=== PATIENT | male | born 1955 | race Caucasian/White ===

== ENCOUNTER → 2017-03-13 | Outpatient (CLI) | payer OTHER | END | disposition home or self-care (01) | LOC: PCVCIMAG 09:33 | PROVIDERS: ATTEND Internal Medicine | DX: I25.10 Atherosclerotic heart disease of native coronary artery without angina pectoris (principal); I21.3 ST elevation (STEMI) myocardial infarction of unspecified site; I10 Essential (primary) hypertension; E78.00 Pure hypercholesterolemia, unspecified; E11.9 Type 2 diabetes mellitus without complications; Z95.5 Presence of coronary angioplasty implant and graft | CPT/HCPCS: 93325; 93351 ==

== ENCOUNTER → 2019-05-26 | Outpatient (CLI) | payer OTHER ==
--- NOTE | 2019-05-26 16:52 | PCVCIMAG ---
APPROVED REPORT Study performed: 05/26/2019 14:48:16 Exam: Stress Echocardiogram Indication: CAD s/p PCI, Hypertension Patient Location: Echo lab Stress Nurse: Rain Calabrese RN Room #: 2 Status: routine Ht: 5 ft 9 in HR: 62 bpm BP: 126/68 mmHg Rhythm: NSR Medical History Medical History: CAD s/p stent to RCA x 2,htn, JAYY, DSLP, DM Cardiac Risk Factors: HTN, Hyperlipidemia, Diabetes (insulin) Previous Cardiac Procedures: PCI Pretest Chest Pain Characteristics: No chest pain Exercise History: Indeterminate Procedure The patient underwent an Exercise Stress Test using the Maurice Protocol. Blood pressure, heart rate, and EKG were monitored. An Echocardiogram was performed by manufacturing lab technician in four stages in quad fashion. At peak stress, four selected images were obtained and placed side by side with resting images for comparison. Stress Test Details Stress Test: Exercise stress testing was performed using a Maurice protocol. HR Resting HR: 62 bpmMax Heart Rate (APMHR): 158 bpm Max HR Achieved: 139 bpmTarget HR (85% APMHR): 134 bpm % of APMHR: 87 Recovery HR: 68 bpm HR response to stress: Normal HR response to stress BP Resting BP: 126/68 mmHg Max BP: 164/68 mmHg Recovery BP: 124/66 mmHg BP response to stress: Normal blood pressure response to stress. ECG Resting ECG: Sinus Rhythm Stress ECG: Sinus Rhythm ST Change: Non-ischemic Maximum ST Deviation: 0 mm Arrhythmia: occasional PACs, Rare PVCs Recovery ECG: Sinus Rhythm Recovery ST Change: Non-ischemic Recovery ST Deviation: 0 mm Recovery Arrhythmia: None Clinical Reason for Termination: Maximal effort Stress Symptoms: Fatigue Exercise duration: 7 min 52 sec Highest Stage Achieved: Stage 3: 3.4 mph at 14% grade. Exercise capacity: 10.1 METs Overall Exercise Capacity for Age: Average Scale: Sedentary Angina Score: None No complications. Stress ECG Conclusion The patient exercised according to the MAURICE protocol for 7:52 mins; achieving a work level of 10.1 METS. The resting heart rate of 62 bpm tyler to a maximum heart rate of 139 bpm. This value represent 87% of the maximal, age-predicted heart rate. The resting blood pressure of 126/68 mmHg, tyler to a maximum blood pressure of 164/68mmHg. The exercise test was stopped due to fatigue, knee pain. Fitzgerald Treadmill Score is 7.0 which is Low risk. Pre-Stress Echo The resting Echocardiogram showed normal left ventricular contractility with an estimated Ejection Fraction of about 55-60%. Normal wall motion in all segments on baseline images. Post-Stress Echo The stress Echocardiogram showed normal left ventricular contractility with an estimated Ejection Fraction of about 65-70%. Normal augmentation of wall motion in all segments on post stress images. Clinical No clinical or ECG evidence for ischemia. Conclusion Clinical Response: Non-ischemic Exercise Capacity: Average Stress ECG Response: Non-ischemic Stress Echo Images: Non-ischemic No clinical, EKG or echocardiographic evidence for ischemia. No echocardiographic evidence for exercise induced ischemia. Normal stress echocardiogram with maximal exercise stress. <Conclusion> No clinical, EKG or echocardiographic evidence for ischemia. No echocardiographic evidence for exercise induced ischemia. Normal stress echocardiogram with maximal exercise stress.
== END | disposition home or self-care (01) ==
LOC: PCVCIMAG 14:31
PROVIDERS: ATTEND Internal Medicine
DX: I25.10 Atherosclerotic heart disease of native coronary artery without angina pectoris (principal); I10 Essential (primary) hypertension; E11.9 Type 2 diabetes mellitus without complications; Z95.5 Presence of coronary angioplasty implant and graft
CPT/HCPCS: 93325; 93351